=== PATIENT | female | born 1945 | race Caucasian/White ===

== ENCOUNTER 2017-01-02 08:48 | Emergency (ER) | payer MEDICARE, OTHER ==
[2017-01-02 09:12] VITALS: BP 155/70
--- NOTE | 2017-01-02 09:21 | EDM.PDOC ---
ED HPI ANIMAL BITE - General Time Seen by Provider: 01/02/17 09:23 Chief Complaint: Bite:Animal, Insect Stated Complaint: DEER TICK Source of Information: Reports: Patient History Limitations: Reports: No limitations - History of Present Illness INITIAL COMMENTS - FREE TEXT/NARRATIVE: pt removed a deer tick from the back of her left thigh. She is not sure how long it was on. Onset of Symptoms: Reports: today Duration: Reports: Day(s): Location: Reports: lower extremity, left Description of Animal: Reports: other ( this was a tick bite. ) Associated Symptoms: denies symptoms - Related Data Allergies Allergy/AdvReac Type Severity Reaction Status Date / Time Penicillins Allergy Rash Verified 01/02/17 09:02 Home Meds: Home Meds Aspirin [Adult Low Dose Aspirin EC] 81 mg PO DAILY 01/02/17 [History] Past Medical History HEENT History: Reports: Impaired vision [employer]UFA[employer]ING [employer]ER History: Reports: Musculoskeletal History: Reports: Arthritis - Past Surgical History GI Surgical History: Reports: Cholecystectomy Female Surgical History: Reports: Tubal ligation Musculoskeletal Surgical History: Reports: Knee replacement Social & Family History - Family History Family Medical History: Noncontributory - Tobacco Use Smoking Status *Q: Never Smoker Second Hand Smoke Exposure: No - Caffeine Use Caffeine Use: Reports: Coffee - Alcohol Use Days Per Week of Alcohol Use: 1 Number of Drinks Per Day: 1 Total Drinks Per Week: 1 - Recreational Drug Use Recreational Drug Use: No ED ROS GENERAL - Review of Systems Review Of Systems: See Below Constitutional: Reports: no symptoms HEENT: Reports: No symptoms Respiratory: Reports: No Symptoms Cardiovascular: Reports: No symptoms Endocrine: Reports: no symptoms GI/Abdominal: Reports: No symptoms : Reports: no symptoms Musculoskeletal: Reports: no symptoms Neurological: Reports: Other ( tick bite on the back of her left leg. ) ED EXAM, ANIMAL BITE - Physical Exam Exam: See Below Text/Narrative:: Pt removed a tick from the back of her left leg. This was a female deer tick Exam Limited By: No limitations General Appearance: alert Ears: normal TMs Nose: normal inspection Throat/Mouth: Normal inspection Head: atraumatic Skin Exam: Other (pt has a deer tick bite on the back of her left leg. ) Course - Vital Signs Last Recorded V/S: Last Vital Signs Temp 36.3 C 04/30/17 09:10 Pulse 70 01/02/17 09:10 Resp 16 01/02/17 09:10 BP 155/70 H 01/02/17 09:10 Pulse Ox 95 01/02/17 09:10 Departure - Departure Time of Disposition: 09:20 Disposition: Home, Self-Care 01 Condition: fair Clinical Impression: Dermacentor andersoni tick bite Referrals: Arash Anderson MD [Primary Care Provider] - Forms: ED Department Discharge Care Plan Goals: doxycyline 100mg bid for 5 days.
== END 2017-01-02 09:32 | disposition home or self-care (01) ==
LOC: JP.ED 08:48
DX: S70.362A Insect bite (nonvenomous), left thigh, initial encounter (principal); M19.90 Unspecified osteoarthritis, unspecified site; Z88.0 Allergy status to penicillin; Z79.82 Long term (current) use of aspirin; Z90.49 Acquired absence of other specified parts of digestive tract; Z98.51 Tubal ligation status; W57.XXXA Bitten or stung by nonvenomous insect and other nonvenomous arthropods, initial encounter
CPT/HCPCS: 99283

== ENCOUNTER 2018-12-10 20:40 | Emergency (ER) | payer MEDICARE, BC ==
[2018-12-10 20:57] VITALS: BP 162/71
--- NOTE | 2018-12-10 21:29 | EDM.PDOC ---
ED HPI GENERAL MEDICAL PROBLEM - General Stated Complaint: FEVER,SHAKY Time Seen by Provider: 12/10/18 21:05 Source of Information: Reports: Patient History Limitations: Reports: No Limitations - History of Present Illness INITIAL COMMENTS - FREE TEXT/NARRATIVE: 73-year-old female who has had nasal stuffiness and sneezing, scratchy throat and facial pressure for the last 3 days. Tonight she started running a low- grade fever so called the nurse hotline and they told her to come to the emergency room. She has no cough or shortness of breath, no abdominal pain, nausea vomiting, or rashes. Onset: Gradual Duration: Day(s): (3 days) frontal headache Pain Score (Numeric/FACES): 2 - Related Data Allergies Allergy/AdvReac Type Severity Reaction Status Date / Time Penicillins Allergy Rash Verified 12/10/18 21:03 Home Meds: Home Meds NK [No Known Home Meds] 12/10/18 [History] Past Medical History HEENT History: Reports: Impaired Vision Gastrointestinal History: Reports: Cholelithiasis [employer]MENT History: Reports: Musculoskeletal History: Reports: Arthritis Endocrine/Metabolic History: Reports: Obesity/BMI 30+ - Past Surgical History GI Surgical History: Reports: Cholecystectomy, Colonoscopy Female Surgical History: Reports: Tubal Ligation Musculoskeletal Surgical History: Reports: Knee Replacement Social & Family History - Family History Family Medical History: Noncontributory - Tobacco Use Smoking Status *Q: Never Smoker - Caffeine Use Caffeine Use: Reports: Coffee - Recreational Drug Use Recreational Drug Use: No ED ROS GENERAL - Review of Systems Review Of Systems: See Below Constitutional: Reports: Fever, Chills, Malaise HEENT: Reports: Rhinitis, Other (Sinus pressure) Respiratory: Reports: No Symptoms. Denies: Cough Cardiovascular: Denies: Chest Pain GI/Abdominal: Denies: Abdominal Pain : Reports: No Symptoms Skin: Reports: No Symptoms Neurological: Denies: Headache ED EXAM, GENERAL - Physical Exam Exam: See Below Exam Limited By: No Limitations General Appearance: Alert, No Apparent Distress Ears: Normal TMs Nose: Clear Rhinorrhea Throat/Mouth: Normal Inspection Head: Atraumatic Neck: No: Lymphadenopathy (R), Lymphadenopathy (L) Respiratory/Chest: No Respiratory Distress, Lungs Clear Cardiovascular: Regular Rate, Rhythm Neurological: Alert, Oriented Psychiatric: Normal Affect, Normal Mood Course - Vital Signs Last Recorded V/S: Last Vital Signs Temp 97.2 F 12/10/18 21:07 Pulse 65 12/10/18 21:07 Resp 16 12/10/18 21:07 BP 162/71 H 12/10/18 21:07 Pulse Ox 94 L 12/10/18 21:07 - Re-Assessments/Exams Free Text/Narrative Re-Assessment/Exam: 12/10/18 21:28 Patient has a viral URI, no antibiotics indicated at this point. She currently is not running a fever either. Encouraged rest, fluids, [id number] cold medicines for the next few days and recheck if not improving in 3-4 days. Departure - Departure Time of Disposition: 21:46 Disposition: Home, Self-Care 01 Condition: Good Clinical Impression: Viral URI - Discharge Information Instructions: Viral Respiratory Infection, [id number] Referrals: Arash Anderson MD [Primary Care Provider] - Forms: ED Department Discharge Care Plan Goals: [id number] cold medicine such as Ninfa-Barrington plus cold or Dayquil would be helpful. Return in 2-3 days if not improving, or return anytime if worsening such as difficulty breathing.
== END 2018-12-10 21:46 | disposition home or self-care (01) ==
LOC: JP.ED 20:40
DX: J06.9 Acute upper respiratory infection, unspecified (principal); Z88.0 Allergy status to penicillin
CPT/HCPCS: 99283

== ENCOUNTER 2021-07-03 10:51 | Emergency (ER) | payer MEDICARE ==
[2021-07-03] MEDS ORDERED: Morphine 4 MG/ML Syringe IVPUSH PRN (11:29)
[2021-07-03] MEDS ORDERED: Nitroglycerin 0.4 MG Tab.SL SL PRN (11:29)
[2021-07-03] MEDS ORDERED: Alum Hydrox/Mag Hydrox/Simeth 15 ML, Lidocaine 2% 15 ML PO ONE ×2 (11:30)
--- NOTE | 2021-07-03 11:32 | EDM.PDOC ---
ED HPI GENERAL MEDICAL PROBLEM - General Chief Complaint: Chest Pain Stated Complaint: CHEST PAIN Time Seen by Provider: 07/03/21 11:29 Source of Information: Reports: Patient, Family, RN Notes Reviewed History Limitations: Reports: No Limitations - History of Present Illness INITIAL COMMENTS - FREE TEXT/NARRATIVE: 75-year-old female presents emergency department day complaint of chest pain, she states she awoke with this chest pain about 8AM, initially was 2-3 felt a little short of breath no nausea no diaphoresis took 2 full-strength aspirin the pain has now subsided to about a 1 has no history of cardiac disease - Related Data Allergies Allergy/AdvReac Type Severity Reaction Status Date / Time Penicillins Allergy Rash Verified 07/03/21 11:22 Home Meds: Home Meds NK [No Known Home Meds] 12/10/18 [History] Past Medical History HEENT History: Reports: Impaired Vision Gastrointestinal History: Reports: Cholelithiasis 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: Musculoskeletal History: Reports: Arthritis Endocrine/Metabolic History: Reports: Obesity/BMI 30+ - Past Surgical History GI Surgical History: Reports: Cholecystectomy, Colonoscopy Female Surgical History: Reports: Tubal Ligation Musculoskeletal Surgical History: Reports: Knee Replacement Social & Family History - Family History Family Medical History: No Pertinent Family History - Tobacco Use Tobacco Use Status *Q: Never Tobacco User - Caffeine Use Caffeine Use: Reports: Coffee, Soda - Alcohol Use Days Per Week of Alcohol Use: 1 Number of Drinks Per Day: 1 Total Drinks Per Week: 1 - Recreational Drug Use Recreational Drug Use: No ED ROS GENERAL - Review of Systems Review Of Systems: See Below Constitutional: Reports: No Symptoms HEENT: Reports: No Symptoms Respiratory: Reports: Shortness of Breath Cardiovascular: Reports: Chest Pain GI/Abdominal: Reports: No Symptoms ED EXAM, GENERAL - Physical Exam Exam: See Below Exam Limited By: No Limitations General Appearance: Alert, WD/WN, No Apparent Distress Respiratory/Chest: No Respiratory Distress, Lungs Clear, Normal Breath Sounds, No Accessory Muscle Use, Chest Non-Tender Cardiovascular: Regular Rate, Rhythm, No Murmur #1 Interpretation EKG Date: 07/03/21 Time: 11:32 Rhythm: NSR Royal: Normal P-Wave: Present QRS: Normal ST-T: Normal QT: Normal Comparison: NA - No Prior EKG Course - Vital Signs Last Recorded V/S: Last Vital Signs Temp 98.1 F 07/03/21 11:24 Pulse 78 07/03/21 11:24 Resp 21 H 07/03/21 11:24 BP 190/89 H 07/03/21 11:24 Pulse Ox 97 07/03/21 11:24 - Orders/Labs/Meds Orders: Active Orders 24 hr Category Date Time Status Cardiac Monitoring [RC] .As Directed Care 07/03/21 11:29 Active EKG Documentation Completion [RC] ASDIRECTED Care 07/03/21 11:30 Active Morphine Med 07/03/21 11:29 Active 4 mg IVPUSH Q10M PRN Nitroglycerin [Nitrostat] Med 07/03/21 11:29 Active 0.4 mg SL Q5M PRN EKG 12 Lead [EK] Stat Ther 07/03/21 11:30 Ordered Medication Orders Morphine Sulfate (Morphine 4 Mg/Ml Syringe) 4 mg IVPUSH Q10M PRN PRN Reason: Chest Pain Stop: 07/04/21 11:30 Nitroglycerin (Nitroglycerin 0.4 Mg Tab.Sl) 0.4 mg SL Q5M PRN PRN Reason: Chest Pain Stop: 07/04/21 11:30 Labs: Laboratory Tests 07/03/21 07/03/21 Range/Units 11:42 11:42 WBC 9.2 (4.5-11.0) K/uL RBC 4.90 (3.30-5.50) M/uL Hgb 15.1 H (12.0-15.0) g/dL Hct 43.6 (36.0-48.0) % MCV 89 (80-98) fL MCH 31 (27-31) pg MCHC 35 (32-36) % Plt Count 243 (150-400) K/uL Neut % (Auto) 65.3 (36-66) % Lymph % (Auto) 24.1 (24-44) % Smith % (Auto) 7.3 H (2-6) % Eos % (Auto) 2.8 (2-4) % Baso % (Auto) 0.5 (0-1) % Sodium 136 L (140-148) mmol/L Potassium 4.1 (3.6-5.2) mmol/L Chloride 100 (100-108) mmol/L Carbon Dioxide 27 (21-32) mmol/L Anion Gap 13.1 (5.0-14.0) mmol/L BUN 13 (7-18) mg/dL Creatinine 0.8 (0.6-1.0) mg/dL Est Cr Clr Drug Dosing 47.32 mL/min Estimated GFR (MDRD) > 60 (>60) Glucose 99 (74-106) mg/dL Calcium 8.9 (8.5-10.1) mg/dL Total Bilirubin 0.5 (0.2-1.0) mg/dL AST 25 (15-37) U/L ALT 47 (12-78) U/L Alkaline Phosphatase 89 (46-116) U/L Troponin I < 0.017 (0.000-0.056) ng/mL Total Protein 7.9 (6.4-8.2) g/dL Albumin 3.9 (3.4-5.0) g/dL Globulin 4.0 H (2.3-3.5) g/dL Albumin/Globulin Ratio 1.0 L (1.2-2.2) Meds: Medications Generic Name Dose Route Start Last Admin Trade Name Freq PRN Reason Stop Dose Admin Morphine Sulfate 4 mg 07/03/21 11:29 Morphine 4 Mg/Ml Syringe IVPUSH 07/04/21 11:30 Q10M PRN Chest Pain Nitroglycerin 0.4 mg 07/03/21 11:29 Nitroglycerin 0.4 Mg Tab.Sl SL 07/04/21 11:30 Q5M PRN Chest Pain Discontinued Medications Generic Name Dose Route Start Last Admin Trade Name Freq PRN Reason Stop Dose Admin Al Hydroxide/Mg Hydroxide 15 0 ml 07/03/21 11:30 07/03/21 11:37 ml/ Lidocaine HCl 15 ml PO 07/03/21 11:31 15 ml ONETIME ONE Administration Departure - Departure Time of Disposition: 12:18 Disposition: Home, Self-Care 01 Condition: Fair Clinical Impression: Atypical chest pain Instructions: Nonspecific Chest Pain, Adult, [id number] Referrals: Arash Anderson MD [Primary Care Provider] - Forms: ED Department Discharge Additional Instructions: Continue with regular medications, consider discussing a stress test with your primary care, please followup with your primary care provider in 3-5 days if not better, please call return to the emergency department with worsening of symptoms. Sepsis Event Note (ED) - Evaluation Sepsis Screening Result: No Definite Risk - Focused Exam Vital Signs: Vital Signs Temp Pulse Resp BP Pulse Ox 07/03/21 11:24 98.1 F 78 21 H 190/89 H 97 07/03/21 11:14 98.1 F 78 21 H 190/89 H 97 - My Orders Last 24 Hours: My Active Orders 07/03/21 11:29 Cardiac Monitoring [RC] .As Directed Morphine 4 mg IVPUSH Q10M PRN Nitroglycerin [Nitrostat] 0.4 mg SL Q5M PRN 07/03/21 11:30 EKG Documentation Completion [RC] ASDIRECTED EKG 12 Lead [EK] Stat - Assessment/Plan Last 24 Hours: My Active Orders 07/03/21 11:29 Cardiac Monitoring [RC] .As Directed Morphine 4 mg IVPUSH Q10M PRN Nitroglycerin [Nitrostat] 0.4 mg SL Q5M PRN 07/03/21 11:30 EKG Documentation Completion [RC] ASDIRECTED EKG 12 Lead [EK] Stat Plan: Assessment Acuity = acute Site and laterality = atypical chest pain suspicious for underlying gastroesophageal reflux disease Etiology = unknown Manifestations = none Location of injury = Home Lab values = CBC, CMP, troponin within normal limits chest x-ray shows no acute process EKG no ST elevations or depressions Plan Her heart score is 2 puts her at low risk because she had the event several hours prior to presenting to the emergency department her troponin was not measurable no markings on EKG she had good relief with the GI cocktail plan is discharged home and follow-up with primary care for further evaluation This note was dictated using [employer] voice recognition software please call with any questions on syntax or grammar.
--- NOTE | 2021-07-03 12:03 | CR ---
CHEST: Portable 07/03/2021 at 11:58 AM CLINICAL HISTORY:Chest pain COMPARISON:None FINDINGS: The heart size, pulmonary vascularity and hilar structures are normal. No infiltrate effusion or pneumothorax is seen. IMPRESSION: No acute cardiopulmonary process.
[2021-07-03 12:40] VITALS: BP 173/82; PULSE 66
== END 2021-07-03 12:44 | disposition home or self-care (01) ==
LOC: JP.ED 10:51
DX: R07.89 Other chest pain (principal); E66.9 Obesity, unspecified; Z68.32 Body mass index [BMI] 32.0-32.9, adult; Z88.0 Allergy status to penicillin
CPT/HCPCS: 36415; 71045; 80053; 84484; 85025; 93005; 99285; A9270

== ENCOUNTER 2025-01-20 14:33 | Emergency (ER) | payer MEDICARE ==
[2025-01-20 14:50] VITALS: BP 163/74; PULSE 74
[2025-01-20] MEDS: Doxycycline 100 MG Cap PO ONE (15:01)
== END 2025-01-20 15:22 | disposition home or self-care (01) ==
LOC: JP.ED 14:33
DX: S30.860A Insect bite (nonvenomous) of lower back and pelvis, initial encounter (principal); I10 Essential (primary) hypertension; E66.9 Obesity, unspecified; Z88.0 Allergy status to penicillin; Z79.899 Other long term (current) drug therapy; Z90.49 Acquired absence of other specified parts of digestive tract; Z68.35 Body mass index [BMI] 35.0-35.9, adult; W57.XXXA Bitten or stung by nonvenomous insect and other nonvenomous arthropods, initial encounter
CPT/HCPCS: 99281; A9270